=== PATIENT | female | born 2000 | race Two or more races ===

== ENCOUNTER 2025-02-16 18:32 | Observation (INO) | payer MEDICAID, OTHER ==
[~2025-02-16] VITALS: Ht 162.6 cm; Wt 68.0 kg
--- NOTE | 2025-02-16 20:10 | DVH ---
OB ULTRASOUND, LIMITED CLINICAL INDICATION: category 2 tracing TECHNIQUE: Multiple grayscale ultrasound and M-mode images were obtained of the pelvis for evaluation of intrauterine . COMPARISON: US OB ULTRASOUND COMP GTR 14 WKS on DOS: 02/16/25 FINDINGS: A single living fetus is seen in cephalic presentation. Biophysical profile: 01/22 breathin movements: 2 tone: 2 Amniotic fluid: 2 There is a single nuchal cord Placenta: Anterior. Amniotic fluid: Visibly normal. AIDA 9.69 cm heart rate: 138 beats/min. A complete anatomic survey was not performed on this exam. IMPRESSION: 1. Biophysical profile: 01/22 2. Single nuchal cord.
--- NOTE | 2025-02-16 20:21 | DVH ---
LIMITED OB ULTRASOUND > 14 WKS: HISTORY: NOT OUR PATIENT, HAS NO RECORDS. NEED EFW TECHNIQUE: Multiple real-time grayscale images of the gravid uterus with duplex Doppler color flow an d M-mode spectral analysis. TRANSDUCER: Transabdominal FINDINGS: IUP single live fetus at 35 weeks 4 days based on composite averages of the BPD, head circumference, abdominal circumference and femur length Estimated weight 2746 grams heart rate 136 beats per minute AIDA 10.9 cm Cervix not visible Cephalic Presentation Anterior Grade 1 Placenta without previa or abruption. BPD: 8.69 cm consistent with 35 weeks 1 day HC: 30.87 cm consistent with 34 weeks 3 days AC: 31.31 cm consistent with 35 weeks 2 days FL: 7.3 cm consistent with 37 weeks 3 days HC/AC: 0.99 (normal range 0.93 - 1.09) FL/AC: 23.32 consistent with (normal range 20-24) CI: 80.69 consistent with (normal range 70-86) IMPRESSION: 1. IUP single live fetus at 35 weeks 4 days AUA corresponding to an DEYSI of and 08/2024. 2. Single nuchal cord is visible. 3. FHR: 136 bpm
--- NOTE | 2025-02-16 21:04 | DVHDS2 ---
Physician Discharge Progress N Final Diagnosis: Early labor Operations or Procedures: Operations or Procedures S:24 y/o L2 IUP @ 39.0 weeks presents to OB triage with c/o uterine contra ctions causing pelvic pain, starting at 1631 Q5-7mins +FM, denies DEMPSEY, blurred vision, LOF, VB, RUQ pain, UTI symptoms. care with Dr. Ute Ann, uncomplicated per patient, no records available O: VSS NST reactive OB sono done SVE /-3 recheck after 1 hour of ambulation, unchanged A: 24y/0 L2 IUP@ 39.0 Early labor P: D/C home Return to nearest hospital when labor progresses FKC and PreE precautions reviewed. Other Interventions Other Interventions [place] [id number] Ph: [phone] DIAGNOSTIC IMAGING Diagnostic Imaging Report : [id number] Signed PATIENT: OLU LOMAX ACCT: [id number] UNIT: [id number] : 2000 LOC: [facility] ROOM / BED: TRIAGE1 / A AGE / SEX: 24 / F ADM STATUS: ADM IN SERVICE 190 ORDERING PHYSICIAN: NORBERT CERDA CNM PROCEDURE(s): OBUS - OB ULTRASOUND COMP GTR 14 WKS REASON: NOT OUR PATIENT, HAS NO RECORDS. NEED EFW ORDER NUMBER(s): [id number], ACCESSION NUMBER(s): [id number] LIMITED OB ULTRASOUND > 14 WKS: HISTORY: NOT OUR PATIENT, HAS NO RECORDS. NEED EFW TECHNIQUE: Multiple real-time grayscale images of the gravid uterus with duplex Doppler color flow and M-mode spectral analysis. TRANSDUCER: Transabdominal FINDINGS: IUP single live fetus at 35 weeks 4 days based on composite averages of the BPD, head circumference, abdominal circumference and femur length Estimated weight 2746 grams heart rate 136 beats per minute AIDA 10.9 cm Cervix not visible Cephalic Presentation Anterior Grade 1 Placenta without previa or abruption. BPD: 8.69 cm consistent with 35 weeks 1 day HC: 30.87 cm consistent with 34 weeks 3 days AC: 31.31 cm consistent with 35 weeks 2 days FL: 7.3 cm consistent with 37 weeks 3 days HC/AC: 0.99 (normal range 0.93 - 1.09) FL/AC: 23.32 consistent with (normal range 20-24) CI: 80.69 consistent with (normal range 70-86) IMPRESSION: 1. IUP single live fetus at 35 weeks 4 days AUA corresponding to an DEYSI of and 08/2024. 2. Single nuchal cord is visible. 3. FHR: 136 bpm ATED BY: ROBINSON OWMACK Jr., DO DICTATED DATE/TIME: 02/16/252018 SIGNED BY: ROBINSON WOMACK Jr., DO SIGNED DATE/TIME: 02/16/252018 CC: Consultations: Consultations [place] [id number] Ph: [phone] DIAGNOSTIC IMAGING Diagnostic Imaging Report : [id number] Signed PATIENT: OLU LOMAX ACCT: [id number] UNIT: [id number] : 2000 LOC: [facility] ROOM / BED: TRIAGE1 / A AGE / SEX: 24 / F ADM STATUS: ADM IN SERVICE 01 ORDERING PHYSICIAN: NORBERT CERDA CNM PROCEDURE(s): BPP - BIOPHYSICAL PROFILE REASON: category 2 tracing ORDER NUMBER(s): [id number], ACCESSION NUMBER(s): [id number] OB ULTRASOUND, LIMITED CLINICAL INDICATION: category 2 tracing TECHNIQUE: Multiple grayscale ultrasound and M-mode images were obtained of the pelvis for evaluation of intrauterine . COMPARISON: US OB ULTRASOUND COMP GTR 14 WKS on DOS: 02/16/25 FINDINGS: A single living fetus is seen in cephalic presentation. Biophysical profile: 01/22 breathin movements: 2 tone: 2 Amniotic fluid: 2 There is a single nuchal cord Placenta: Anterior. Amniotic fluid: Visibly normal. AIDA 9.69 cm heart rate: 138 beats/min. A complete anatomic survey was not performed on this exam. IMPRESSION: 1. Biophysical profile: 01/22 2. Single nuchal cord. ATED BY: SHANNON TAMAYO MD DICTATED DATE/TIME: 02/16/252007 SIGNED BY: SHANNON TAMAYO MD SIGNED DATE/TIME: 02/16/252007 CC: Condition on Discharge: Stable Disposition: Home Discharge Instructions: Diet: Regular Activity: No Restrictions, As Tolerated Medications: See Med List Follow Up Care: Specialist: Follow up with primary OB Discharge Statement: "Patient was advised to return to the ER or call 911 if any headaches, dizziness, shortness of breath, chest pain, abdominal pain, bleeding, fevers, or worsening of medical condition. Patient was counseled about treatment plan, medications, possible side effects, patientverbalized understanding. All questions were answered to the best of my ability. This discharge took greater then 30 minutes in planning, reviewing documentation, counseling the patient, and discussing with other team members." Visit Coding OBGYN Date of Service: Feb 16, 2025 Billing Provider: NORBERT CERDA CNM FINANCIAL MANAGER Common Visit Codes: [id number] OBS CARE (MOD) FINANCIAL MANAGER Procedure Codes: 23274-99- NON-STRESS TEST KAYLIE CARLSON STUDENTMDW Feb 16, 2025 21:04
[2025-02-17] MEDS ORDERED: IBU600T PO (18:26)
[2025-02-17] MEDS ORDERED: PREN-96 PO (18:26)
[2025-02-17] MEDS ORDERED: DOCU-94 PO (18:26)
== END 2025-02-16 21:14 | disposition home or self-care (01) ==
LOC: LDRP 18:32
PROVIDERS: ADMIT Obstetrics & Gynecology; ATTEND Obstetrics & Gynecology
DX: O60.03 Preterm labor without delivery, third trimester (principal); Z3A.39 39 weeks gestation of pregnancy; Z98.890 Other specified postprocedural states
CPT/HCPCS: 59025; 76805; 76819; 81002; 94760; G0378

== ENCOUNTER 2025-02-16 21:38 | Inpatient (IN) | payer MEDICAID ==
[~2025-02-16] VITALS: Ht 162.6 cm; Wt 72.6 kg
[2025-02-16] MEDS ORDERED: LIDOCAINE 2%HCL (LOCAL ANESTH.) INJ 20ML MDV IJ PRN (22:00)
[2025-02-16] MEDS ORDERED: LACTATED RINGER'S 1,000 ML IV SCH (22:00)
[2025-02-16] MEDS ORDERED: NALBUPHINE HCL 10 MG/1ml INJECTION IV PRN (22:00)
[2025-02-16 22:14] LABS: Hematocrit 36.6 % (36.0-46.0); Hemoglobin 12.8 g/dL (12.2-16.2); Mean Corpuscular Hemoglobin 31.9 pg (28.0-32.0); Mean Corpuscular Volume 90.9 fL (80.0-100.0); Nucleated Red Blood Cells % 0.1 %
[2025-02-16 22:16] LABS: Urine Protein, UAD TRACE (Negative)
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
[2025-02-16 22:26] LABS: INR 0.92 (0.9-1.15); Partial Thromboplastin Time 31.8 SEC (24.5-34.5); Prothrombin Time 9.8 sec (9.3-11.8)
[2025-02-16 22:29] LABS: Alanine Aminotransferase 18 U/L (7-40); Albumin 3.7 g/dL (3.2-4.8); Anion Gap 11 (5-15); BUN/Creatinine Ratio 12.2 (10.0-20.0); Carbon Dioxide 21 mmol/L (20-31); Chloride 103 mmol/L (98-107); Glucose 77 mg/dL (74-106); Potassium 3.6 mmol/L (3.5-5.1); Total Protein 6.7 g/dL (5.7-8.2)
[2025-02-16 22:30] LABS: Alkaline Phosphatase 122 U/L (46-116); Bilirubin, Total 0.4 mg/dL (0.2-1.0); Blood Urea Nitrogen 6 mg/dL (9-23); Calcium 8.5 mg/dL (8.7-10.4); Sodium 135 mmol/L (136-145)
[2025-02-16 22:35] LABS: Amphetamine Screen, Urine Neg (NEGATIVE); Barbiturate Scree,Urine Neg (NEGATIVE); Benzodiazephine Screen, Urine Neg (NEGATIVE); Cannabinoid Screen, Urine Neg (NEGATIVE); Cocaine Screen, Urine Neg (NEGATIVE); Opiate Scree,Urine Neg (NEGATIVE); Phencyclidine Screen, Urine Neg (NEGATIVE)
[2025-02-16] MEDS: LACT. RINGERS/OXYTOCIN 20UNITS 500 ML IV ONE (23:42)
[2025-02-16] MEDS: ROPIVACAINE HCL 100 ML ONE (23:59)
[2025-02-17] MEDS: LACT. RINGERS/OXYTOCIN 20UNITS 500 ML IV ONE (00:02)
--- NOTE | 2025-02-17 00:05 | LDN2 ---
Labor and Delivery Note Date 02/16/25 Age 24 6 Para 4 AB 2 EDC 02/27/2025 EGA 38.3 Diagnosis Active labor/SROM then Vaginal Delivery: VTX Vacuum Assisted: No Placenta: Spontaneous Sex: Female Weight Pending Apgars 8/9 Nuchal Cord Transected: No Amniotic Fluid: Clear Anesthesia Epidural Episiotomy: No Extension: No EBL 200 Labs Laboratory Tests 02/16/25 22:00: Hepatitis B Surface Antigen Negative, HIV (1&2) Antibody Negative Blood Bank 02/16/25 22:00: Blood Type O POSITIVE Complications None Conditions Stable Food Safety Technician Nehemiah Comments/Significant Med Chayo On 02/16/25 at 2303 this 24yo now L3 delivered a viable Female by w/ APGARS 9/9. LITO with loose Nuchal x1 with cord reduced after . Infant placed skin to skin on pts chest. Cord clamped and cut after pulsation ceased. Cord blood sent. Pitocin IV bolus started. Intact 3-vessel cord placenta delivered spontaneously, Rosalind. Placenta sent to pathology. Patient had epidural. Cervix/vagina inspected (intact) and intact perineum. Fundus at U, firm, midline, and light lochia. QBL 200ml. VSS. Count correct x2. Patient to care and baby to couplet care, both stable. Visit Coding OBGYN Date of Service: Feb 16, 2025 Billing Provider: NORBERT CERDA CNM OFFSHORING MANAGER Common Visit Codes: PROCEDURE ONLY OFFSHORING MANAGER Procedure Codes: 28636-[id number] DEL INCLUDING KAYLIE CARLSON STUDENTMDW Feb 17, 2025 00:05
--- NOTE | 2025-02-17 00:09 | DVHPN2 ---
Progress Note Date Seen: Feb 17, 2025 Subjective S: Patient due to void Denies pain Yet to ambulate after epidural vital signs VSS, See CPN medications Current Medications Medications Dose Ordered Sig/Padmini Route Start Time Stop Time Status Last Admin Dose Admin Sanam Smallwood 1 pad PRN PRN TOP 02/16/25 22:00 Sodium Lauryl Sulfate 240 ml PRN PRN TOP 02/16/25 22:00 Benzocaine 1 applic PRN PRN TOP 02/16/25 22:00 Ibuprofen 600 mg Q6HP PRN PO 02/16/25 23:45 UNV Acetaminophen 650 mg Q6HPRN PRN PO 02/16/25 23:45 UNV Prenat Multivit/ Open Pit Quarry Supervisor/Iron/Folic Ac 1 DAILY PO 02/17/25 10:00 UNV laboratory and microbiology Laboratory Tests 02/16/25 22:00 Test 02/16/25 22:00 Range/Units Serum Glucose 77 74-106 mg/dL Objective O: VSS. See CPN Chest: heart sounds normal and lung sounds clear bilaterally Abd: soft, non-tender, fundus at U/firm/midline Perineum: intact, no erythema/edema noted Ext: Non-tender, No edema, 2+ BLE DTRs Lochia: minimal See lab results Assessment/Plan A/P 24 yo L3 ppd#1 s/p - Continue routine PP care Plan discussed with: Patient, Spouse KAYLIE CARLSON STUDENTMDW Feb 17, 2025 00:09
[2025-02-17] MEDS: IBUPROFEN 600 MG TAB PO PRN (02:45)
[2025-02-17 03:00] VITALS: BP 93/50; PULSE 62; RESP 16; TEMP 98.3; O2SAT 96
[2025-02-17] MEDS: ACETAMINOPHEN 325 MG TAB PO PRN (06:05)
[2025-02-17 06:40] VITALS: BP 125/74; PULSE 59; RESP 18; TEMP 97.7; O2SAT 99
[2025-02-17] MEDS: PRENATAL VITAMIN TAB PO SCH (10:53)
[2025-02-17 11:02] VITALS: BP 91/58; PULSE 59; RESP 16; TEMP 97.8; O2SAT 95
[2025-02-17 13:01] LABS: Hematocrit 36.1 % (36.0-46.0); Hemoglobin 12.7 g/dL (12.2-16.2); Mean Corpuscular Hemoglobin 32.3 pg (28.0-32.0); Mean Corpuscular Volume 91.7 fL (80.0-100.0); Nucleated Red Blood Cells % 0.1 %
[2025-02-17] MEDS ORDERED: DOCU-94 PO (18:26)
[2025-02-17] MEDS ORDERED: PREN-96 PO (18:26)
[2025-02-17] MEDS ORDERED: IBU600T PO (18:26)
[2025-02-17 18:55] VITALS: BP 95/58; PULSE 74; RESP 18; TEMP 98.1; O2SAT 97
[2025-02-17] MEDS: DOCUSATE SOD 100 MG CAP PO SCH (22:22)
[2025-02-17] MEDS: WITCH HAZEL-GLYCERIN PAD TOP PRN (22:27)
[2025-02-17] MEDS: DERMOPLAST 60ML BOTTLE TOP PRN (22:27)
[2025-02-17] MEDS: PHISODERM TOP SOLN 240ML BTL TOP PRN (22:27)
[2025-02-17 22:41] VITALS: BP 110/57; PULSE 63; RESP 19; TEMP 98; O2SAT 97
--- NOTE | 2025-02-18 00:47 | DVHPN2 ---
Progress Note Date Seen: Feb 18, 2025 Subjective S: bleeding is light, pt is eating without any issues, denies DEMPSEY, blurry vision, epigastric pain, lightheadedness/dizziness, pain well controlled with PO meds, no concerns with urinating, no BM yet but passed flatus, ambulates well, no issues with , BCM undecided. vital signs Vital Sign Date Time Temp Pulse Resp B/P (MAP) Pulse Ox O2 Delivery O2 Flow Rate FiO2 02/17/25 22:41 98.0 63 19 110/57 (74) 97 98.0 02/17/25 19:02 Room Air medications Current Medications Medications Dose Ordered Sig/Padmini Route Start Time Stop Time Status Last Admin Dose Admin Sanam Selin 1 pad PRN PRN TOP 02/16/25 22:00 02/17/25 22:27 1 PAD Sodium Lauryl Sulfate 240 ml PRN PRN TOP 02/16/25 22:00 02/17/25 22:27 240 ML Benzocaine 1 applic PRN PRN TOP 02/16/25 22:00 02/17/25 22:27 1 APPLIC Ibuprofen 600 mg Q6HP PRN PO 02/16/25 23:45 02/17/25 16:21 600 MG Acetaminophen 650 mg Q6HPRN PRN PO 02/16/25 23:45 02/17/25 22:22 650 MG Prenat Multivit/ Tift/Iron/Folic Ac 1 DAILY PO 02/17/25 10:00 02/17/25 10:53 1 Docusate Sodium 200 mg HS PO 02/17/25 22:00 02/17/25 22:22 200 MG laboratory and microbiology Laboratory Tests 02/17/25 12:42 02/16/25 22:00 Test 02/16/25 22:00 Range/Units Serum Glucose 77 74-106 mg/dL Objective O: VSS Chest: heart and lung sounds normal. Abd soft, non-tender, fundus firm at U and midline, BS, no rebound or guarding, BLE: Non-tender, edema Lochia - minimal Perineum: no erythema, no laceration Labs resulted Problems(with codes): (1) 38 weeks gestation of (2) Intact perineum (3) (normal spontaneous vaginal delivery) Assessment/Plan A: 24yo ppd#1 s/p Rh status + Rubella status immune Pain control with PO medications P: D/C home today Bowel regimen with Colace, fiber and fluids encouraged precautions and preeclampsia warning signs reviewed F/U with [facility] office in 2 weeks Plan discussed with: Patient, Spouse MANI PAYTON Feb 18, 2025 00:47
--- NOTE | 2025-02-18 00:50 | DVHDS2 ---
Physician Discharge Progress N Final Diagnosis: IUP @ 38.3wk Problems List: (1) (normal spontaneous vaginal delivery) (2) 38 weeks gestation of (3) Intact perineum Condition on Discharge: Stable Disposition: Home Discharge Instructions: Diet: Regular Activity: No Restrictions, As Tolerated (no heavy lifting, and nothing in the vagina for 6 weeks) Medications: PNV, Colace, Motrin Follow Up Care: Discharge Statement: "Patient was advised to return to the ER or call 911 if any headaches, dizziness , shortness of breath, chest pain, abdominal pain, bleeding, fevers, or worsening of medical condition. Patient was counseled about treatment plan, medications, possible side effects, patientverbalized understanding. All questions were answered to the best of my ability. This discharge took greater then 30 minutes in planning, reviewing documentation, counseling the patient, and discussing with other team members." Discharge Care Plan Problem Pain Goals Pain controlled Know Self care, Verbalize understanding Instructions Take Rx medications, Call 911 in an emergency, Provide comfort measures Visit Coding OBGYN Date of Service: Feb 18, 2025 Billing Provider: NORBERT CERDA CNM MUD MIXER HELPER Common Visit Codes: [id number]-SNB/OBS DISCH DAY >30MIN AMNI PAYTON Feb 18, 2025 00:50
--- NOTE | 2025-02-18 01:35 | DVHDS2 ---
Obstetrics Discharge Summary Obstetrics Discharge Summary Date of Admission: Feb 16, 2025 Date of Discharge: Feb 18, 2025 Reason For Admission: Onset of Labor Procedures: NST, Ultrasound Intrapartum Procedures: Spontaneous vaginal deliv Procedures: Hct/date: (02/17/25), Hgb/date: (02/17/25) Operative Complicat: None Discharge Diagnosis: Term -Delivered Discharge Information: Activity (as tolerated, no heavy lifting, nothing in the vagina for 6 weeks), Diet (Routine), Medications (rx sent), Instructions (Rou elida), Discharge to (Home), Accompanied by (partner), Discarge date (02/18/25) Visit Coding OBGYN Date of Service: Feb 18, 2025 Billing Provider: NORBERT CERDA CNM PLATE STACKER HAND Common Visit Codes: 90932-MEW/OBS DISCH DAY <30MIN MANI PAYTON Feb 18, 2025 01:35
[2025-02-18 03:00] VITALS: BP 95/57; PULSE 63; RESP 16; TEMP 98; O2SAT 97
[2025-02-18 07:15] VITALS: BP 93/57; PULSE 70; RESP 16; TEMP 97.9; O2SAT 97
[2025-02-18 10:41] VITALS: BP 99/67; PULSE 70; RESP 16; TEMP 97.5; O2SAT 96
[2025-02-18 21:07] LABS: Chlamydia Trachomatis, NAA Negative (Negative); Neisseria gonorrhoeae, NAA Negative (Negative)
== END 2025-02-18 15:00 | disposition home or self-care (01) | DRG 560 ==
LOC: LDRP 21:38 → OBSVTOIN 21:45 → LDRP 21:46
PROVIDERS: ADMIT Obstetrics & Gynecology; ATTEND Obstetrics & Gynecology
PROC: 10E0XZZ Delivery of Products of Conception, External Approach (ICD-10-PCS; principal; 2025-02-16)
PROC: 3E0R3BZ Introduction of Anesthetic Agent into Spinal Canal, Percutaneous Approach (ICD-10-PCS; 2025-02-16)
PROC: 00HU33Z Insertion of Infusion Device into Spinal Canal, Percutaneous Approach (ICD-10-PCS; 2025-02-16)
DX: O80 Encounter for full-term uncomplicated delivery (principal); Z37.0 Single live birth; Z3A.38 38 weeks gestation of pregnancy
CPT/HCPCS: 36415; 59025; 59409; 62282; 80053; 80307; 81001; 81002; 85025; 85610; 85730; 86703; 86780; 86803; 86850; 86900; 86901; 87340; 94760; 96360; 96361; 96365; G0378; J2590